=== PATIENT | male | born 1990 | race African-American/Black ===

== ENCOUNTER 2017-04-01 18:51 | Emergency (ER) | payer OTHER ==
[~2017-04-01] VITALS: Ht 182.9 cm; Wt 74.4 kg
[2017-04-01 18:51] VITALS: BP 108/71
[2017-04-01] MEDS ORDERED: Naloxone 1mg/ml 2ml IM PRN (19:00)
--- NOTE | 2017-04-01 19:37 | Emergency Room Report ---
History of Present Illness General Chief Complaint: Overdose Source: Patient Present Illness HPI Patient is 26-year-old male who presented after having increased altered mental status. Patient apparently had overdosed on unknown substance. Patient had reported smoking marijuana. He denies any opiate use. The patient was noted to have pinpoint pupils by EMS. Patient was noted to be somnolent. He awoke immediately prior to paramedics attempted to give him Narcan however he continued to be somewhat sleepy Allergies: Coded Allergies: UNABLE TO ASSESS (Unverified , 04/01/17) Patient History Reviewed Nursing Documentation: PMH: Agreed, PSxH: Agreed Nursing Documentation-PM Past Medical History Deferred: No Family Available Past Medical History: Deferred Review of Systems All Other Systems: limited - by ams Physical Exam Vital Signs Date Time Temp Pulse Resp B/P (MAP) Pulse Ox O2 Delivery O2 Flow Rate FiO2 04/01/17 18:43 96.4 93 14 126/76 99 Sp02 EP Interpretation: reviewed, normal General Appearance: normal inspection, well appearing, no apparent distress, alert, GCS 15, non-toxic Head: normocephalic, atraumatic Eyes: bilateral eye other - pinpoint pupils ENT: normal ENT inspection, hearing grossly normal, normal voice Neck: normal inspection, full range of motion, supple, no bony tend Respiratory: normal inspection, lungs clear, normal breath sounds, no respiratory distress, no retraction, no wheezing Cardiovascular #1: regular rate, rhythm, no edema Gastrointestinal: normal inspection, normal bowel sounds, non tender, soft, no guarding, no hernia Genitourinary: no CVA tenderness Musculoskeletal: normal inspection, back normal, normal range of motion Neurologic: normal inspection, alert, responsive, speech normal Psychiatric: normal inspection, judgement/insight normal, mood/affect normal Skin: normal inspection, normal color, no rash Medical Decision Making Diagnostic Impression: Primary Impression: Drug overdose ER Course Patient presented for altered mental status. Differential diagnosis included but was not limited to ischemic stroke, drug overdose, subarachnoid hemorrhage, hypoglycemia, spinal cord injury, neurodegenerative disorder, urinary tract infection, hypoxemia. Patient's benign exam and does not appear to require any further imaging or laboratory testing at this time. At the time of discharge patient is awake alert oriented and able to ambulate without assistance.The patient declined laboratory testing. Patient appears to be awake alert and oriented. Patient was advised to not drive a motor vehicle or operate heavy machinery. The patient is advised to follow up with primary care doctor in 1- 2 days. Patient is advised to return if any worsening condition or if any changes in status that are concerning. Last Vital Signs Date Time Temp Pulse Resp B/P (MAP) Pulse Ox O2 Delivery O2 Flow Rate FiO2 04/01/17 18:43 96.4 93 14 126/76 99 Status: improved Disposition: HOME, SELF-CARE Condition: Stable Kiko Weston Apr 01, 2017 19:37
[2017-04-01 20:00] VITALS: BP 105/70
== END 2017-04-01 20:00 | disposition home or self-care (01) ==
LOC: EDBD 18:51 → EMR 19:20
DX: T65.91XA Toxic effect of unspecified substance, accidental (unintentional), initial encounter (principal); R41.82 Altered mental status, unspecified
CPT/HCPCS: 99283